=== PATIENT | female | born 1985 | race African-American/Black ===

== ENCOUNTER 2016-06-04 20:27 | Emergency (ER) | payer OTHER ==
[~2016-06-04 20:27] MED LIST: *DENIES; LEVAQUIN5T PO; NORV5 PO
== END 2016-06-05 01:10 | disposition home or self-care (01) ==
LOC: ER 20:27
PROC: 0HQ0XZZ Repair Scalp Skin, External Approach (ICD-10-PCS; principal; 2016-06-04)
DX: S01.81XA Laceration without foreign body of other part of head, initial encounter (principal); S40.021A Contusion of right upper arm, initial encounter; I10 Essential (primary) hypertension; Z88.5 Allergy status to narcotic agent; Z88.0 Allergy status to penicillin; Z79.899 Other long term (current) drug therapy; Y08.89XA Assault by other specified means, initial encounter
CPT/HCPCS: 70450; 90471; 90714; 99284; A9270-GY

== ENCOUNTER 2016-07-25 15:16 | Emergency (ER) | payer SELFPAY | END 2016-07-25 16:29 | disposition home or self-care (01) | LOC: ER 15:16 | DX: S01.511A Laceration without foreign body of lip, initial encounter (principal); F17.200 Nicotine dependence, unspecified, uncomplicated; Z98.51 Tubal ligation status; Z88.0 Allergy status to penicillin; Z88.5 Allergy status to narcotic agent; Z79.2 Long term (current) use of antibiotics; Z79.899 Other long term (current) drug therapy; W01.0XXA Fall on same level from slipping, tripping and stumbling without subsequent striking against object, initial encounter | CPT/HCPCS: 99282 ==